=== PATIENT | female | born 1965 | race Caucasian/White ===

== ENCOUNTER 2017-03-25 17:45 | Emergency (ER) | payer OTHER ==
[~2017-03-25] VITALS: Ht 154.9 cm; Wt 75.0 kg
[2017-03-25] MEDS ORDERED: ASPI-988 PO (17:53)
[2017-03-25 18:08] VITALS: BP 134/76
[2017-03-25] MEDS ORDERED: IBUPROFEN 800 MG TABLET PO ONE (18:30)
== END 2017-03-25 18:45 | disposition home or self-care (01) ==
LOC: EMS 17:47
DX: S06.0X0A Concussion without loss of consciousness, initial encounter (principal); S05.12XA Contusion of eyeball and orbital tissues, left eye, initial encounter; S05.11XA Contusion of eyeball and orbital tissues, right eye, initial encounter; F17.210 Nicotine dependence, cigarettes, uncomplicated; Z88.0 Allergy status to penicillin; Y04.2XXA Assault by strike against or bumped into by another person, initial encounter; Y93.89 Activity, other specified; Y92.89 Other specified places as the place of occurrence of the external cause; Y99.8 Other external cause status
CPT/HCPCS: 99282